=== PATIENT | male | born 1945 | race Caucasian/White ===

== ENCOUNTER → 2020-07-07 | Day surgery (SDC) | payer OTHER ==
[~2020-07-07] MED LIST: AMANTADINE100 MG PO; ARICEPT23 MG PO; ASCORBIC ACID500 MG PO; ASPIRIN EC81 MG PO; BUSPIRONE HCL10 MG PO; CARBIDOPA-LEVO1 EA11 PO; CARBIDOPA-LEVO1 EAC2 PO; CLONAZEPAM 1MG T1 MG PO; FLONASE ALLER15.8 ML; MVI PO; MYRBETRIQ50 MG PO; PREVACID30 M1 PO; PROSCAR5 MG PO; REMERON15 MG PO; VIT E PO; VITAMIN B122500 MCG PO; VITAMIN D325 MC2 PO; ZOCOR 20MG TABL20 MG PO; ZOLOFT100 MG PO
[2020-07-07 11:51] LABS: HCT 41.6 % (42.0-52.0); HGB 13.4 g/dl (13.2-18.0); MCH 32.9 pg (25.0-31.0); MCHC 32.2 g/dL (32.0-36.0); MCV 102.2 fL (78.0-100.0); MPV 9.6 fL (6.0-9.5); RBC 4.07 M/uL (4.70-6.00); RDW 13.2 % (11.5-14.0); WBC 7.3 K/uL (4.0-10.5)
[2020-07-07 12:17] LABS: ALBUMIN 3.5 g/dL (3.4-5.0); BILIRUBIN - TOTAL 0.7 mg/dL (0.2-1.0); BUN/CREAT RATIO (CALC) 51.9 RATIO; CREATININE 0.52 mg/dL (0.67-1.17); GLOBULIN (CALCULATION) 3.6 g/dL; POTASSIUM 4.2 mmol/L (3.5-5.1); TOTAL PROTEIN 7.1 g/dL (6.4-8.2)
== END | disposition home or self-care (01) ==
LOC: FAS 09:48
PROVIDERS: Surgery
DX: T85.518A Breakdown (mechanical) of other gastrointestinal prosthetic devices, implants and grafts, initial encounter (principal); T85.528A Displacement of other gastrointestinal prosthetic devices, implants and grafts, initial encounter; G20 Parkinson's disease; G47.30 Sleep apnea, unspecified; F41.9 Anxiety disorder, unspecified; C18.9 Malignant neoplasm of colon, unspecified; K21.9 Gastro-esophageal reflux disease without esophagitis; Z79.82 Long term (current) use of aspirin; Z79.899 Other long term (current) drug therapy; Z95.1 Presence of aortocoronary bypass graft
CPT/HCPCS: 36415; 80053; J2250; J2704; J7120

== ENCOUNTER → 2020-12-28 | Day surgery (SDC) | payer OTHER ==
[~2020-12-28] VITALS: Ht 177.8 cm; Wt 61.7 kg
== END | disposition home or self-care (01) ==
LOC: FAS 07:07
DX: K94.13 Enterostomy malfunction (principal); R63.3 Feeding difficulties; G20 Parkinson's disease; F41.9 Anxiety disorder, unspecified; E78.00 Pure hypercholesterolemia, unspecified; I10 Essential (primary) hypertension; C18.9 Malignant neoplasm of colon, unspecified; K21.9 Gastro-esophageal reflux disease without esophagitis; G47.33 Obstructive sleep apnea (adult) (pediatric); Z85.828 Personal history of other malignant neoplasm of skin; Z95.1 Presence of aortocoronary bypass graft
CPT/HCPCS: J2704; J3010; J7120

== ENCOUNTER → 2021-01-05 | Day surgery (SDC) | payer OTHER ==
[~2021-01-05] VITALS: Ht 177.8 cm; Wt 61.7 kg
== END | disposition home or self-care (01) ==
LOC: FAS 11:15
DX: K94.13 Enterostomy malfunction (principal); G20 Parkinson's disease; E78.00 Pure hypercholesterolemia, unspecified; G47.30 Sleep apnea, unspecified; F41.9 Anxiety disorder, unspecified
CPT/HCPCS: J2250; J7120

== ENCOUNTER 2021-11-10 13:15 | Emergency (ER) | payer OTHER ==
[~2021-11-10 13:15] MED LIST changes: +BUSPAR5 MG PO; +CARBIDOPA-LEVO1 EAC4 PO; +CLONAZEPAM2 MG PO
[2021-11-10 14:38] LABS: BASOPHIL 0.3 % (0-2); EOSINOPHIL 2.6 % (0-7); HCT 38.1 % (42.0-52.0); HGB 12.3 g/dl (13.2-18.0); LYMPHOCYTE 15.4 % (15-48); MCH 33.5 pg (25.0-31.0); MCHC 32.3 g/dL (32.0-36.0); MCV 103.8 fL (78.0-100.0); MONOCYTE 8.7 % (0-12); MPV 9.6 fL (6.0-9.5); NEUTROPHIL 72.7 % (41-80); NRBC 0; PLT 199 K/uL (150-400); RBC 3.67 M/uL (4.70-6.00); RDW 13.2 % (11.5-14.0); WBC 8.6 K/uL (4.0-10.5)
[2021-11-10 15:16] LABS: BUN/CREAT RATIO (CALC) 43.1 RATIO; CREATININE 0.58 mg/dL (0.67-1.17); POTASSIUM 4.2 mmol/L (3.5-5.1)
[2021-11-10 15:26] LABS: BILIRUBIN NEGATIVE (NEGATIVE); BLOOD NEGATIVE Ery/uL (NEGATIVE); CLARITY CLEAR (CLEAR); COLOR YELLOW (YELLOW); GLUCOSE (U) NORMAL (NORMAL); LEUKOCYTES NEGATIVE Leu/uL (NEGATIVE); NITRITE NEGATIVE (NEGATIVE); PROTEIN NEGATIVE (NEGATIVE); SPECIFIC GRAVITY >=1.030 (1.001-1.030)
[2021-11-10 16:32] LABS: LACTIC ACID 1.1 mmol/L (0.4-1.9)
[2021-11-10 18:06] LABS: CORONAVIRUS 2019 SARS-COV-2 NEGATIVE (NEGATIVE); INFLUENZA A NAA NEGATIVE (NEGATIVE)
== END 2021-11-10 18:17 | disposition home or self-care (01) ==
LOC: FER 13:15
PROVIDERS: Nurse Practitioner Family
DX: I95.9 Hypotension, unspecified (principal); I25.10 Atherosclerotic heart disease of native coronary artery without angina pectoris; I10 Essential (primary) hypertension; G20 Parkinson's disease; Z20.822 Contact with and (suspected) exposure to COVID-19; Z95.1 Presence of aortocoronary bypass graft; Z86.16 Personal history of COVID-19
CPT/HCPCS: 36415; 36600; 71045; 80048; 81003; 82803; 83605; 84145; 84484; 85025; 85379; 87040; 93005; J7030; U0002

== ENCOUNTER → 2022-03-20 | Day surgery (SDC) | payer OTHER ==
[~2022-03-20] VITALS: Ht 177.8 cm; Wt 59.0 kg
[~2022-03-20] MED LIST changes: +DUOPA 4.63 MG-100 ML JT; +ZINC50 M2 PO
[2022-03-20 09:40] LABS: HCT 41.1 % (42.0-52.0); HGB 13.6 g/dl (13.2-18.0); MCHC 33.1 g/dL (32.0-36.0); MCV 102.8 fL (78.0-100.0); MPV 9.7 fL (6.0-9.5); RDW 12.8 % (11.5-14.0); WBC 7.4 K/uL (4.0-10.5)
[2022-03-20 09:52] LABS: ALBUMIN 3.6 g/dL (3.4-5.0); BILIRUBIN - TOTAL 0.8 mg/dL (0.2-1.0); BUN/CREAT RATIO (CALC) 44.1 RATIO; CREATININE 0.59 mg/dL (0.67-1.17); GLOBULIN (CALCULATION) 3.6 g/dL; POTASSIUM 4.3 mmol/L (3.5-5.1); TOTAL PROTEIN 7.2 g/dL (6.4-8.2)
== END | disposition home or self-care (01) ==
LOC: FAS 08:45
PROVIDERS: Surgery
DX: K94.13 Enterostomy malfunction (principal); E78.5 Hyperlipidemia, unspecified; G20 Parkinson's disease; G47.30 Sleep apnea, unspecified; F41.9 Anxiety disorder, unspecified
CPT/HCPCS: 36415; 80053; J2704; J7120